=== PATIENT | female | born 1940 | race Caucasian/White ===

== ENCOUNTER → 2017-09-27 | Outpatient (CLI) | payer MEDICARE, BC ==
[~2017-09-27] MED LIST: ESCI10TA10 PO; LACT1CAP35 PO; MULT-658 PO; OMEG1CAP39 PO; PRAV40TA2 PO; TRIA1TAB2 PO; TURM500C7 PO
== END | disposition home or self-care (01) ==
LOC: STAR 09:41
PROVIDERS: ATTEND Family Medicine
DX: E87.6 Hypokalemia (principal)
CPT/HCPCS: 93005

== ENCOUNTER → 2018-01-16 | Outpatient (CLI) | payer MEDICARE, BC | END | disposition home or self-care (01) | LOC: CFH 12:53 | PROVIDERS: ATTEND Internal Medicine Cardiovascular Disease | DX: I07.1 Rheumatic tricuspid insufficiency (principal); I10 Essential (primary) hypertension | CPT/HCPCS: 93306 ==

== ENCOUNTER 2019-12-25 09:11 | Outpatient (CLI) | payer MEDICARE | END 2019-12-25 23:59 | disposition home or self-care (01) | LOC: CFH 09:11 | PROVIDERS: ATTEND Family Medicine | DX: M85.88 Other specified disorders of bone density and structure, other site (principal); N95.8 Other specified menopausal and perimenopausal disorders; R41.3 Other amnesia | CPT/HCPCS: 70450; 77080 ==